=== PATIENT | female | born 1955 | race Caucasian/White ===

== ENCOUNTER → 2019-08-13 10:25 | Outpatient (BNVA) | payer BC, SELFPAY | PROVIDERS: Family Provider Nurse Practitioner Family; PCP Nurse Practitioner Family; Visit Provider Nurse Practitioner Family | DX: E03.9 Hypothyroidism, unspecified (principal) | CPT/HCPCS: 84443 ==

== ENCOUNTER → 2019-09-27 16:08 | Outpatient (BNVA) | payer BC, SELFPAY | PROVIDERS: Visit Provider Family Medicine | DX: R07.9 Chest pain, unspecified (principal); E78.2 Mixed hyperlipidemia; E05.90 Thyrotoxicosis, unspecified without thyrotoxic crisis or storm; G43.009 Migraine without aura, not intractable, without status migrainosus; I10 Essential (primary) hypertension; T73.2XXA Exhaustion due to exposure, initial encounter; X58.XXXA Exposure to other specified factors, initial encounter | CPT/HCPCS: 80053; 80061; 84443; 85025 ==

== ENCOUNTER 2019-10-13 11:46 | Outpatient (CLI) | payer BC, SELFPAY ==
--- NOTE | 2019-10-13 08:00 | USCV_ITS ---
Alexander Arguelles Age: 64 Gender: F : 1955 Exam Date: 10/13/2019 13:09 Ordering Phys: Khushi Huddleston MD Technologist: Oj Galvan Exam Location: [facility] – [place] Indication: CHEST PAIN Rhythm: Sinus Patient History: Chest pain, Hypertension, Hyperlipidemia, former Smoker, Family history Cardiac Medications: Beta erika, MANAS Inhibitor, Statin Medications in past 24 hours: NONE Contrast: Stress Results Protocol: Sushant Total dose(mL): Exercise Duration (min:sec): 7:33 METS: 10.2 Resting HR: 58 Resting BP: 163 / 79 Peak HR: 116 Peak BP: 203 / 86 Max Predicted HR: 158 73 % Max Predicted HR Target HR: 134 Double Product: 75425 Stress Summary: The patient's target heart rate was not achieved The hemodynamic response to exercise was normal Maximal effort achieved/ Patient could not continue. Patient reached a maximum heart rate of 116 which is 73% of the maximum predicted heart rate. BP Response: Hypertensive. Resting blood pressure 163/79. Maximum blood pressure 203/81. Reason for Termination: Maximal effort/unable to continue Cardiac Symptoms: Short of Breath, Leg fatigue, Fatigue ECG Analysis Resting ECG: Normal sinus rhythm, normal ECG Stress ECG: No abnormal ST/T wave changes with exercise Arrhythmia: None MEASUREMENTS (Male/Female) Normal Values FINDINGS Normal resting EKG and wall motion by echo. No ischemia noted by EKG or echo at heart rate achieved. Suboptimal effort with lack of adequate heart rate for adequate interpretation CONCLUSIONS Nondiagnostic stress echo due to low heart rate If ischemia is suspected, a Lexiscan sestamibi would be a better test. Dr. Steve Guy MD (Electronically Signed) Final Date: 13 October 2019 16:54 C MTDD
[2019-10-13 13:02] VITALS: BMI 32.1
--- NOTE | 2019-10-13 13:07 | ECG_ITS ---
NAME OF STUDY: TREADMILL STRESS ECHOCARDIOGRAM INDICATION: [Chest Pain] RESULTS TO KELLIE NULL Unable to reach THR d/t fatigue and shortness of breath, did reach maximal effort, patient stated she could not continue This study is dictated under a different electronic health record. Please see that record for details. Electronically Signed On 10-13-2019 16:49:39 TURN DOWN MAN by Steve Guy M.D. [email or web address]
[2019-10-13 13:41] VITALS: BP 155/64; PULSE 79
== END 2019-10-13 11:47 | disposition home or self-care (01) ==
LOC: CDL 11:52
PROVIDERS: Family Provider Family Medicine; PCP Family Medicine; Visit Provider Family Medicine
DX: R07.9 Chest pain, unspecified (principal); I10 Essential (primary) hypertension; E78.5 Hyperlipidemia, unspecified; Z87.891 Personal history of nicotine dependence
CPT/HCPCS: 93017; 93350

== ENCOUNTER → 2019-12-21 12:24 | Outpatient (BNVA) | payer BC, SELFPAY | PROVIDERS: Family Provider Family Medicine; PCP Family Medicine; Visit Provider Nurse Practitioner Family | DX: L30.9 Dermatitis, unspecified (principal); I10 Essential (primary) hypertension; B37.2 Candidiasis of skin and nail; E55.9 Vitamin D deficiency, unspecified | CPT/HCPCS: 80053; 82306; 83036; 84443; 85025 ==

== ENCOUNTER → 2020-03-14 10:43 | Outpatient (BNVA) | payer BC, SELFPAY | PROVIDERS: Family Provider Family Medicine; PCP Family Medicine; Visit Provider Family Medicine | DX: E78.5 Hyperlipidemia, unspecified (principal); E11.9 Type 2 diabetes mellitus without complications; E03.9 Hypothyroidism, unspecified; I10 Essential (primary) hypertension; G43.009 Migraine without aura, not intractable, without status migrainosus; F17.211 Nicotine dependence, cigarettes, in remission; Z71.89 Other specified counseling | CPT/HCPCS: 80053; 80061; 83036; 84443 ==

== ENCOUNTER → 2020-07-13 10:41 | Outpatient (BNVA) | payer BC, SELFPAY | PROVIDERS: Family Provider Family Medicine; PCP Family Medicine; Visit Provider Family Medicine | DX: N39.0 Urinary tract infection, site not specified (principal); E11.9 Type 2 diabetes mellitus without complications; E78.2 Mixed hyperlipidemia; I10 Essential (primary) hypertension; G43.009 Migraine without aura, not intractable, without status migrainosus; E03.8 Other specified hypothyroidism; B35.4 Tinea corporis | CPT/HCPCS: 80053; 80061; 83036; 84443; 85025; 87086 ==

== ENCOUNTER → 2020-11-06 08:24 | Outpatient (BNVA) | payer BC, SELFPAY | PROVIDERS: Family Provider Family Medicine; PCP Family Medicine; Visit Provider Family Medicine | DX: E78.2 Mixed hyperlipidemia (principal); I10 Essential (primary) hypertension; E03.8 Other specified hypothyroidism; E11.9 Type 2 diabetes mellitus without complications | CPT/HCPCS: 80053; 80061; 83036; 84443; 85025 ==

== ENCOUNTER → 2021-01-18 10:36 | Outpatient (BNVA) | payer BC, SELFPAY | PROVIDERS: Family Provider Family Medicine; PCP Family Medicine; Visit Provider Family Medicine | DX: E03.8 Other specified hypothyroidism (principal) | CPT/HCPCS: 84443 ==

== ENCOUNTER 2021-02-23 13:48 | Outpatient (CLI) | payer BC, SELFPAY ==
--- NOTE | 2021-02-23 13:52 | XR_ITS ---
WS: [id number] Bone mineral density performed on a [facility], 02/23/2021 Clinical data: OSTEOPENIA MULTIPLE SITES Findings: The first 4 lumbar vertebral bodies demonstrated the bone mineral density of 1.099 g/cm2 for a young adult T score of -0.7. Measurement of the left hip reveals a bone mineral density of 0.951 g/cm2 with a young adult T score of -0.5. Measurement of the right hip reveals the bone mineral density of 0.869 g/cm2 for young adult T score of -1.1. XR/XR DEXA axial skeleton* [id number] Impression: 1. Normal bone mineral density of the lumbar spine and left hip. 2. Osteopenia of the right hip.
== END 2021-02-23 13:49 | disposition home or self-care (01) ==
PROVIDERS: PCP Family Medicine; Visit Provider Internal Medicine Rheumatology
DX: M85.89 Other specified disorders of bone density and structure, multiple sites (principal)
CPT/HCPCS: 77080

== ENCOUNTER → 2021-04-09 10:38 | Outpatient (BNVA) | payer BC, SELFPAY | PROVIDERS: PCP Family Medicine; Visit Provider Podiatrist Foot & Ankle Surgery | DX: Z01.812 Encounter for preprocedural laboratory examination (principal); Z20.822 Contact with and (suspected) exposure to COVID-19; E11.9 Type 2 diabetes mellitus without complications; E78.5 Hyperlipidemia, unspecified; I10 Essential (primary) hypertension | CPT/HCPCS: 80053; 83036; 85025; 87635 ==

== ENCOUNTER → 2021-10-01 08:47 | Outpatient (BNVA) | payer OTHER, SELFPAY | PROVIDERS: PCP Family Medicine; Visit Provider Podiatrist Foot & Ankle Surgery | DX: E11.9 Type 2 diabetes mellitus without complications (principal); I10 Essential (primary) hypertension; E78.5 Hyperlipidemia, unspecified; E03.9 Hypothyroidism, unspecified | CPT/HCPCS: 80053; 80061; 82306; 83036; 84443; 85025 ==

== ENCOUNTER → 2022-03-26 09:18 | Outpatient (BNVA) | payer MEDICARE, SELFPAY | PROVIDERS: PCP Family Medicine; Visit Provider Family Medicine | DX: E11.9 Type 2 diabetes mellitus without complications (principal); E03.9 Hypothyroidism, unspecified; E55.9 Vitamin D deficiency, unspecified; E78.5 Hyperlipidemia, unspecified; I10 Essential (primary) hypertension | CPT/HCPCS: 80053; 80061; 82306; 83036; 84443; 85025 ==

== ENCOUNTER → 2022-04-23 08:59 | Outpatient (BNVA) | payer SELFPAY | PROVIDERS: PCP Family Medicine; Visit Provider Dermatology | DX: Z01.89 Encounter for other specified special examinations (principal) ==

== ENCOUNTER → 2022-09-26 08:14 | Outpatient (BNVA) | payer MEDICARE, SELFPAY | PROVIDERS: PCP Family Medicine; Visit Provider Family Medicine | DX: E11.9 Type 2 diabetes mellitus without complications (principal); E03.9 Hypothyroidism, unspecified; I10 Essential (primary) hypertension; E78.5 Hyperlipidemia, unspecified; E55.9 Vitamin D deficiency, unspecified | CPT/HCPCS: 80053; 80061; 82306; 83036; 84443; 85025 ==

== ENCOUNTER 2023-01-16 14:52 | Outpatient (CLI) | payer MEDICARE, SELFPAY ==
--- NOTE | 2023-01-16 14:59 | XR_ITS ---
WS: [id number] SCREENING DEXA SCAN [employer] CLINICAL INFORMATION: OSTEOOPENIA OF MULTIPLE SITES/ASYMPTOMATIC MENOPAUSAL STATE COMPARISON: 2020 FINDINGS: The L1-L4 bone mineral density measures 1.047 g/cm2. This corresponds to a T score score of -1.1 and Z score of 0.1. Left femoral neck bone mineral density measures 0.908 g/cm2. This corresponds to a T score of -0.8 an d Z score of 0.2. Right femoral neck bone mineral density measures 0.856 g/cm2. This corresponds to a T score -1.2of an d Z score of -0.2. Mean femoral neck bone mineral density measures 0.882 g/cm2. This corresponds to a T score of -1.0 an d Z score of 0.0. XR/XR DEXA axial skeleton* [id number] IMPRESSION: Osteopenia lumbar spine. Osteopenia femoral necks at the lower end of the range . Patient's FRAX calculated 10 year probability for major osteoporotic fracture i s 18.3 % and osteoporotic hip fracture is 2.1%. Since 2020: Bone mineral density in the lumbar spine has decreased -4.7% Bone mineral density femoral necks decreased -3.1%
== END 2023-01-16 14:53 | disposition home or self-care (01) ==
PROVIDERS: PCP Family Medicine; Visit Provider Internal Medicine Rheumatology
DX: Z13.820 Encounter for screening for osteoporosis (principal); Z78.0 Asymptomatic menopausal state; M85.89 Other specified disorders of bone density and structure, multiple sites
CPT/HCPCS: 77080

== ENCOUNTER → 2023-03-06 09:24 | Outpatient (BNVA) | payer MEDICARE, SELFPAY | PROVIDERS: PCP Family Medicine; Visit Provider Family Medicine | DX: E03.9 Hypothyroidism, unspecified (principal); E11.9 Type 2 diabetes mellitus without complications; E78.5 Hyperlipidemia, unspecified; I10 Essential (primary) hypertension | CPT/HCPCS: 80053; 80061; 83036; 83735; 84443; 85025 ==